=== PATIENT | male | born 1955 | race Caucasian/White ===

== ENCOUNTER → 2016-11-23 | Outpatient (CLI) | payer OTHER ==
[~2016-11-23] MED LIST: ADVIN25/60 INH; IBUP-103 PO; KETO10TA PO; LORA-741 PO; MULT-506 PO; OXYC-57 PO; SPRIN/30 INH; VNTHFA/IN INH; [UNRECOGNIZED DRUG - OTHER] PO
--- NOTE | 2016-11-23 12:56 | DIAGNOSTIC IMAGING REPORT ---
CHEST 2 VIEWS ROUTINE CLINICAL HISTORY: Preoperative chest COMPARISON STUDY: No previous studies for comparison. FINDINGS: The cardiac images all contours are normal. There is no lobar consolidation. The patient is hyperinflated. There is no failure. There are no pleural effusions. There is minor basilar interstitial thickening likely chronic.[ IMPRESSION: No active disease in the chest. Electronically signed by: Erik Mckinney M.D. 11/23/2016 12:54 PM Dictated Date/Time: 11/23/2016 12:54 PM
[2016-11-23 13:11] LABS: BASO % 0.3 %; BASO ABS # 0.03 K/uL (0-0.2); COMPLETE YES; IG% 0.2 %; LYMPH % 24.9 %; MEAN CELL VOLUME 91.6 fL (80-100); MEAN CORPUSCULAR HEMOGLOBIN 31.9 pg (25-34); MEAN CORPUSCULAR HGB CONC 34.8 g/dl (32-36); MONO % 8.7 %; NEUT % 62.9 %; PLATELET COUNT 171 K/uL (130-400); RED BLOOD COUNT 5.46 M/uL (4.7-6.1); WHITE BLOOD COUNT 10.05 K/uL (4.8-10.8)
[2016-11-23 13:28] LABS: BLOOD UREA NITROGEN 28 mg/dl (7-18); BUN/CREATININE RATIO 32.8 (10-20); CALCIUM 9.1 mg/dl (8.5-10.1); CARBON DIOXIDE 30 mmol/L (21-32); CHLORIDE 108 mmol/L (98-107); CREATININE 0.86 mg/dl (0.60-1.40); GLUCOSE 107 mg/dl (70-99); SODIUM 142 mmol/L (136-145)
== END | disposition home or self-care (01) ==
LOC: C.CPL 11:51
PROVIDERS: ATTEND Orthopaedic Surgery
DX: Z01.810 Encounter for preprocedural cardiovascular examination (principal); Z01.811 Encounter for preprocedural respiratory examination; Z01.812 Encounter for preprocedural laboratory examination; M75.121 Complete rotator cuff tear or rupture of right shoulder, not specified as traumatic

== ENCOUNTER → 2016-12-01 | Day surgery (SDC) | payer OTHER, BC ==
[2016-11-28 11:44] VITALS: Ht 177.8 cm; Wt 110.5 kg
[~2016-12-01] VITALS: Ht 177.8 cm; Wt 110.5 kg
[~2016-12-01] MED LIST changes: +ATROPINE SULFATE 0.1 MG/ML 5ML SYR IV PRN; +BUPIVACAINE/EPINEPHRINE 0.25% 1:200,000 30 ML VIAL ONE; +BUPIVACAINE/EPINEPHRINE 0.5% MPF 1:200,000 30 ML VIAL ONE; +CEFAZOLIN 2000 MG/60 ML D5W IV SCH; +DEXAMETHASONE SOD INJ 4 MG/ML VIAL ONE; +EpHEDrine SULFATE INJ 50 MG/ML AMP IV PRN; +EpINEphrine INJ 1MG/ML AMP 1 MG/ML AMP ONE; +FENTANYL CITRATE INJ 50 MCG/1 ML 2 ML VIAL ONE; +FLUMAZENIL 0.1 MG/1 ML 10 ML VIAL IV PRN; +GLYCOPYRROLATE INJ 0.2 MG/ML VIAL ONE; +HYDROmorphone INJ 1 MG/ML SYR IV PRN; +LABETALOL HCL IV 5 MG/ML 20ML IV PRN; +LACTATED RINGER'S 1000ML 1,000 ML IV SCH; +LIDOCAINE HCL 2% 2 ML VIAL (20MG/ML) ONE; +MEPIVACAINE HCL 1% 30 ML VIAL ONE; +MIDAZOLAM HCL 1 MG/ML 2ML VIAL ONE; +NALOXONE HCL 0.4 MG/1 ML VIAL/CARP IV PRN; +NEOSTIGMINE METHYLSULFATE 5 MG/5 ML SYR ONE; +ONDANSETRON INJ 2 MG/ML 2 ML VIAL IV PRN; +ONDANSETRON INJ 2 MG/ML 2 ML VIAL ONE; +OXYCODONE/ACETAMINOPHEN 5-325 TAB PO PRN; +PROMETHAZINE HCL INJ 12.5 MG in SODIUM CHLORIDE 0.9% 50ML 50 ML IV PRN; +PROPOFOL IV EMULSION 10 MG/ML 20 ML VIAL IV ONE; +ROCURONIUM BROMIDE 10 MG/ML 5 ML VIAL ONE; +SODIUM CHLORIDE 0.9% 1000ML 1,000 ML IV SCH; +SODIUM CHLORIDE 0.9% INJ 10 ML VIAL ONE
--- NOTE | 2016-12-01 08:18 | History & Physical Bridge - [place] ---
H&P Re-Evaluation Bridge Note: I have examined the patient, reviewed the History & Physical and in the interval since the performance of the History & Physical I have noted the following changes of clinical significance: No changes noted
--- NOTE | 2016-12-01 11:45 | [facility] Post Operative Brief Note ---
Immediate Operative Summary Operative Date Dec 01, 2016. Pre-Operative Diagnosis Right Shoulder Full Thickness Rotator Cuff Tear Post-Operative Diagnosis Same Procedure(s) Performed Right Shoulder Arthroscopy, Medium Rotator Cuff Repair, Biceps Tenodesis, Acromioplasty Surgeon Dr. Reyna Anthropology Professor Surgeon(s) Sundar Mendoza PA-C Estimated Blood Loss Minimal Findings as above Specimens None Complication(s) None Disposition Recovery Room / PACU
--- NOTE | 2016-12-01 11:55 | Discharge Instructions-SurgCtr ---
Discharge Instructions Date of Service Dec 01, 2016. Visit Reason for Visit: Right Shoulder Full Thickness Rotator Cuff Tear Discharge Discharge Diagnosis / Problem: SAME ABOVE Discharge Goals Goal(s): Decrease discomfort, Improve function Medications Stopped Medications Name(s): advil stopped last monday. Restart Stopped Medication(s): MAY RESTART ONCE YOU COMPLETE THE TORADOL Activity Recommendations Activity Limitations: as noted below Lifting Limitations: until after follow-up appointment Exercise/Sports Limitations: until after follow-up appointment Shower/Bathe: tomorrow Anesthesia . Post Anesthesia Instructions: If you have had General Anesthesia or IV Sedation: * Do not drive today. * Resume driving when surgeon permits. * Do not make important decisions or sign legal documents today. * Call surgeon for: 1. Temperature elevations greater than 101 degrees F. 2. Uncontrollable pain. 3. Excessive bleeding. 4. Persistent nausea and vomiting. 5. Medication intolerance (nausea, vomiting or rash). * For nausea and vomiting use only clear liquids such as: tea, soda, bouillon until nausea subsides, then gradually increase diet as tolerated. * If you have any concerns or questions, call your surgeon's office. If physician is unavailable and it is an emergency, call 911 or go to the nearest emergency room. . Instructions / Follow-Up Instructions / Follow-Up MEDICATIONS: * Resume previous medications unless instructed otherwise by your surgeon. * Always take pain medication on a full stomach or with food to avoid upset stomach. * Do not drink alcohol or drive while taking narcotics. * Ibuprofen or Tylenol may be taken if narcotic not needed. SPECIAL CARE INSTRUCTIONS: __ None _X_ Keep extremity elevated and iced x 48 hours; apply ice 20-30 minutes 8-10 times/day. May remove at night. __ Sling __24 hrs/day __ Remove at night _X_ Shoulder Immobilizer (MAY REMOVE AFTER 48 HOURS ONLY TO SHOWER AND FOR THERAPY) _X_ 24 hrs/day __ Remove at night _X_ Dressing __ Maintain until seen in office, may shower with plastic over site _X_ Remove dressings in 24-48 hours and then may shower _X_ Cover incisions with band-aids after showering __ Do not remove steri-strips Call physician if chills or temperature rises above 102 degrees or pain unrelieved by prescribed pain medications at . . Diet Recommendations Home Diet: no limitations Fluid Restriction: None Procedures Procedures Performed: Right Shoulder Arthroscopy, Medium Rotator Cuff Repair, Biceps Tenodesis, Acromioplasty Pending Studies Studies pending at discharge: no Work Instructions Return To Work: after follow-up Lifting Limitations: NO LIFTING WITH LEFT Medical Emergencies . Who to Call and When: Medical Emergencies: If at any time you feel your situation is an emergency, please call 911 immediately. . Non-Emergent Contact Non-Emergency issues call your: Primary Care Provider Call Non-Emergent contact if: you have a fever, temperature is above 101.5 . . "Provider Documentation" section prepared by Abel Mendoza.
--- NOTE | 2016-12-01 12:03 | OPERATIVE REPORT ---
DATE OF OPERATION: 12/01/2016 PREOPERATIVE DIAGNOSIS: Acute medium-sized right rotator cuff tear and biceps tendinopathy. POSTOPERATIVE DIAGNOSIS: Same. PROCEDURE: Right shoulder diagnostic arthroscopy with extensive debridement, acromioplasty, medium-sized acute rotator cuff repair, and arthroscopic biceps tenodesis. SURGEON: Dr. Dave Reyna. COBOL MAINFRAME DEVELOPER: Len Mendoza PA-C, whose assistance was necessary for positioning the arm and helping with instrumentation. ANESTHESIA: General with a right interscalene nerve block. COMPLICATIONS: None. CONDITION: Stable to PACU. INDICATIONS: Chris is a pleasant 61-year-old male who initially injured his shoulder while carrying furniture back in July. This was a work-related injury. He was treated conservatively without improvement. MRI showed a medium-sized rotator cuff tear. He elected to proceed with arthroscopy. DESCRIPTION OF PROCEDURE: On 12/01/2016, he arrived at [facility] for the above procedure. He was seen in the preoperative holding area and the operative extremity was identified and signed. He was given a preoperative antibiotic and a right interscalene nerve block. He was taken back to the operating room, laid on the table in supine position, and put under general anesthesia. He was then put into the beachchair position. Right shoulder was prepped and draped in sterile fashion. Timeout was done, and the patient and operative extremity was properly identified. A scope was introduced in the posterior portal. Diagnostic arthroscopy showed no cartilage damage to the humeral head or the glenoid. There was some fraying of the superior and anterior labrum. The biceps tendon was significantly frayed on the medial aspect. The subscapularis was intact. There was a tear of almost the entire supraspinatus. The infraspinatus and teres minor were intact. An anterior portal was made. A shaver was used to do a limited debridement of the intraarticular structures and the biceps tendon was arthroscopically tenotomized. The scope was then put into the subacromial space. A lateral portal was made. A shaver was used to do a complete subacromial and subdeltoid bursectomy. An extensive debridement was done to visualize the rotator cuff and pathology. A 5-0 nikki was then used to complete an acromioplasty of a Bigliani type 3 acromion. Shaver was used to remove any excess debris. Attention was turned to the rotator cuff. An additional anterolateral portal was made and Judit cannulas were placed in each of the lateral portals. The crescent-shaped medium-sized rotator cuff tear was easily identified. The greater tuberosity was prepared with a ring curette and microfracture. The rotator cuff was fixed with an Arthrex SpeedBridge configuration using 4.75 mm BioComposite SwiveLock suture anchors. This gave a nice, knotless anatomic repair. Multiple pictures were taken. Two suture lassos were placed around the biceps tendon and it was tenodesed to the anterior lateral anchor. This completed the biceps tenodesis. The scope was placed back into the glenohumeral joint and the articular margin of the rotator cuff had been restored. Pictures were taken. Arthroscopic instruments were removed from the shoulder. Portal sites were closed with 3-0 nylon. He was then placed in a soft dressing and regular arm sling. He was then extubated, transferred to a litter, and taken to the postanesthesia care unit in stable condition. He tolerated the procedure well. I attest to the content of the Intraoperative Record and any orders documented therein. Any exceptio ns are noted below.
[2016-12-01 14:40] VITALS: BP 114/74; PULSE 78; TEMP 37; O2SAT 96
--- NOTE | 2016-12-01 14:41 | Anesthesia Progress Nt - [facility] ---
Anesthesia Post Op Note Date & Time Dec 01, 2016 at 14:40 Vital Signs Pain Intensity: 0 Vital Signs Past 12 Hours Date Time Temp Pulse Resp B/P Pulse Ox O2 Delivery O2 Flow Rate FiO2 12/01/16 14:16 36.8 70 14 116/68 98 Room Air 12/01/16 13:57 66 20 12/01/16 13:57 74 20 95 12/01/16 13:55 115/71 12/01/16 13:52 60 20 12/01/16 13:52 59 20 93 12/01/16 13:50 115/70 12/01/16 13:47 64 24 93 12/01/16 13:47 67 24 12/01/16 13:46 65 20 12/01/16 13:46 63 20 94 12/01/16 13:45 36.0 68 20 113/68 93 Room Air 12/01/16 13:45 113/68 12/01/16 13:44 126/74 12/01/16 13:41 70 24 12/01/16 13:41 24 12/01/16 13:40 136/71 12/01/16 13:30 111/70 12/01/16 13:26 75 19 93 12/01/16 13:26 73 19 12/01/16 13:25 111/66 12/01/16 13:21 72 25 94 12/01/16 13:21 71 25 12/01/16 13:20 102/67 12/01/16 13:16 59 23 12/01/16 13:16 59 23 96 12/01/16 13:15 108/66 12/01/16 13:11 71 19 97 12/01/16 13:11 71 19 12/01/16 13:10 114/68 12/01/16 13:06 69 26 95 12/01/16 13:06 69 26 12/01/16 13:05 104/74 12/01/16 13:01 64 22 12/01/16 13:01 60 22 93 12/01/16 13:00 102/69 12/01/16 12:56 64 27 96 12/01/16 12:56 67 27 12/01/16 12:55 115/65 12/01/16 12:51 61 23 93 12/01/16 12:51 60 23 12/01/16 12:50 105/65 4/6/17 12:46 65 26 86 /617 12:46 68 26 17 12:45 115/68 17 12:41 67 21 92 17 12:41 68 21 17 12:40 115/66 17 12:36 62 24 91 17 12:36 61 24 17 12:35 114/70 12/01/16 12:31 66 23 17 12:31 64 23 91 17 12:30 112/67 12/01/16 12:26 62 19 12/01/16 12:26 62 19 95 12/01/16 12:25 117/74 12/01/16 12:21 69 25 94 12/01/16 12:21 69 25 17 12:20 135/81 12/01/16 12:16 68 26 96 12/01/16 12:16 67 26 12/01/16 12:15 69 24 126/72 94 12/01/16 12:15 68 24 17 12:11 131/69 12/01/16 12:10 71 27 12/01/16 12:10 72 27 94 12/01/16 12:05 65 28 12/01/16 12:05 63 28 114/67 95 12/01/16 12:00 68 22 123/80 12/01/16 12:00 67 22 17 11:55 64 26 117/72 95 17 11:55 64 26 12/01/16 11:50 66 17 126/79 12/01/16 11:50 68 17 125/86 95 12/01/17 11:49 36.2 69 20 125/86 95 Diffusion Mask 6 17 09:55 32 17 09:54 79 25 17 09:50 124/80 12/01/16 09:49 76 12/01/16 09:49 78 19 95 12/01/17 09:45 124/81 17 09:44 78 /02/11 09:44 79 23 96 12/01/16 09:43 79 14 97 12/01/16 09:43 80 12/01/16 09:40 122/72 12/01/16 09:38 75 26 96 12/01/16 09:38 75 12/01/16 09:37 81 12/01/16 09:37 80 18 95 12/01/16 09:35 120/81 12/01/16 09:32 73 20 98 12/01/16 09:32 74 12/01/16 09:30 133/97 12/01/16 09:27 80 20 95 12/01/16 09:27 81 12/01/16 09:22 84 26 95 12/01/16 09:22 83 12/01/16 09:20 134/88 12/01/16 09:17 78 23 92 12/01/16 09:17 82 12/01/16 09:15 136/85 12/01/16 09:12 82 12/01/16 09:12 84 0 90 12/01/16 09:07 82 12/01/16 09:07 86 0 90 12/01/16 09:02 77 12/01/16 09:02 76 0 91 12/01/16 08:57 78 0 90 12/01/16 08:57 79 12/01/16 08:52 87 12/01/16 08:52 87 0 90 12/01/16 08:47 77 0 92 12/01/16 08:47 77 12/01/16 08:42 79 12/01/16 08:42 79 0 93 12/01/16 08:37 79 0 93 12/01/16 08:37 79 12/01/16 08:32 90 0 92 12/01/16 08:32 90 12/01/16 08:27 81 0 94 12/01/16 08:27 83 12/01/16 08:22 85 26 93 12/01/16 08:22 85 26 12/01/16 08:09 36.6 85 20 125/79 95 Room Air Notes Mental Status: alert / awake / arousable, participated in evaluation Pt Amnestic to Procedure: Yes Nausea / Vomiting: adequately controlled Pain: adequately controlled Airway Patency, RR, SpO2: stable & adequate BP & HR: stable & adequate Hydration State: stable & adequate Anesthetic Complications: no major complications apparent
== END | disposition home or self-care (01) ==
LOC: X.SURG 07:54
PROVIDERS: ATTEND Orthopaedic Surgery
DX: S46.011A Strain of muscle(s) and tendon(s) of the rotator cuff of right shoulder, initial encounter (principal); M75.21 Bicipital tendinitis, right shoulder; Y99.0 Civilian activity done for income or pay; Y92.89 Other specified places as the place of occurrence of the external cause; J44.9 Chronic obstructive pulmonary disease, unspecified; G47.30 Sleep apnea, unspecified